=== PATIENT | male | born 1960 | race Caucasian/White ===

== ENCOUNTER 2020-01-29 09:10 | Emergency (ER) | payer BC, SELFPAY ==
--- NOTE | ~2020-01-29 | CT_ITS ---
EXAMINATION: CT abdomen pelvis wo con EXAM DATE: 01/29/2020 10:15 INDICATION: Left lower quadrant pain and hematuria. TECHNIQUE: Spiral CT of the abdomen and pelvis was performed without contrast. Axial, coronal and sag ittal images were reviewed. The dose-length product (DLP) for this examination was 457.43 mGy-cm. T he exposure was tailored according to patient size (auto mA exposure control), and iterative reconstr uction (ASIR) was used as additional dose reduction technique. Comparison is made to prior examinatio n from 02/25/2015. FINDINGS: There is punctate left nephrolithiasis. There is a 4 mm stone in the left ureterovesicular junction with mild left hydroureter and periureteral fat stranding. No caliectasis. Small to moderate bilateral fat-containing inguinal hernias. The prostate is unremarkable. The bladder is unremarkab le. The liver, spleen, adrenal glands and pancreas are unremarkable. Gallbladder is unremarkable. No biliary obstruction. There is no retroperitoneal or pelvic lymphadenopathy. There is mild scatt ered arteriosclerotic disease. Probable ileorectal anastomosis site with near total colectomy, but correlate with surgical history. The stomach and small bowel are unremarkable. There is expected amount of colonic stool. No free intraperitoneal gas. The heart is normal in size. There are no pericardial or pleural effusions. Small regions of left basilar postinfectious residua. There are no osteoblastic or osteolytic lesion s identified. IMPRESSION: 1. Left UVJ 4 mm stone, mild hydroureter. 2. Punctate left nephrolithiasis. 3. Fat-containing inguinal hernias. Reviewed, dictated and finalized at location A.
[2020-01-29 09:21] VITALS: BP 162/110; PULSE 57; RESP 18; TEMP 36.3; O2SAT 100
--- NOTE | 2020-01-29 09:29 | ED.ABDPAIN ---
HPI - Abdominal Pain General Chief Complaint: Abdominal Pain Stated Complaint: abd pain Time Seen by Provider: 01/29/20 09:29 History of Present Illness HPI narrative: LLQ pain for the past few days. Worse today. Associated with mild nausea. Some urinary hesitancy and mild dysuria. He has had kidney stones, this feels somewhat different. Related Data Allergies Allergy/AdvReac Type Severity Reaction Status Date / Time No Known Allergies Allergy Verified 01/29/20 09:19 Review of Systems Review of Systems: All systems reviewed & are unremarkable except as noted in HPI and below Constitutional: Constitutional: Denies fever(s) Cardiovascular: Cardiovascular: Denies chest pain Respiratory: Respiratory: Denies dyspnea Gastrointestinal: Gastrointestinal: Denies constipation and Denies diarrhea Musculoskeletal: Musculoskeletal: Denies back pain Neurologic: Denies weakness [facility] Family History Family History Mother Family history of cardiovascular disease Social History Social History Alcohol intake: current Gender identity (if verbalized by the patient): Male Exam Const: General: healthy appearing, no acute distress and alert Orientation/consciousness: patient oriented x3 HENMT: Head: normal to inspection Resp: Effort & Inspection: normal respiratory effort Auscultation: clear to auscultation bilaterally, no rales, no rhonchi and no wheezes Cardio: Jugular venous distension: no JVD Rate: regular rate Rhythm: regular rhythm Heart sounds: no murmurs GI: Inspection: non-distended GI Palp: Yes Soft to palpation and No Tenderness to palpation present (GI) Skin: General skin exam: normal color Neuro: General: patient oriented x3 and moves all extremities Speech: normal speech Extrem: General: no edema Psych: Appearance: well kempt Affect: normal affect Course Vital Signs Vital signs: Vital Signs Temperature 36.3 C L 01/29/20 09:21 Pulse Rate 57 L 01/29/20 09:21 Respiratory Rate 18 01/29/20 09:21 Blood Pressure 162/110 H 01/29/20 09:21 Pulse Oximetry 100 01/29/20 09:21 Temperature 36.3 C L 01/29/20 11:22 Pulse Rate 52 L 01/29/20 10:52 Respiratory Rate 18 01/29/20 10:52 Blood Pressure 148/89 H 01/29/20 10:52 Pulse Oximetry 100 01/29/20 10:52 MDM - Abdominal Pain Differential Diagnosis Differential diagnosis: Likely calculus of kidney, constipation and diverticulitis Medical Records Attestation: I reviewed the patient's medical records. Lab Data Attestation: I reviewed the patient's lab results. Result diagrams: 01/29/20 09:27 01/29/20 09:27 Labs: Lab Results 01/29/20 01/29/20 01/29/20 Range/Units 09:27 09:27 09:27 WBC 6.9 (4.5-10.0) K/mm3 RBC 5.35 (4.6-6.20) M/mm3 Hgb 12.9 L (14.0-18.0) g/dL Hct 41.1 L (42.0-52.0) % MCV 76.8 L (80-100) fl MCH 24.1 L (26-34) pg MCHC 31.4 L (32-36) g/dl RDW 18.5 H (11.5-14.5) % Plt Count 211 (150-375) k/mm3 MPV 9.0 (7.4-10.4) fl Immature Gran % (Auto) 0.1 (0-0.5) % Neut % (Auto) 75.3 H (45.5-73.1) % Lymph % (Auto) 15.3 L (18.3-44.2) % [place] % (Auto) 7.1 (2.6-8.5) % Eos % (Auto) 1.9 (0-4.4) % Baso % (Auto) 0.3 (0.2-1.2) % Lymph # (Auto) 1.05 (0.9-3.2) K/mm3 [place] # (Auto) 0.5 (0.1-0.6) K/mm3 Eos # (Auto) 0.1 (0-0.3) K/mm3 Baso # (Auto) 0.0 (0.0-0.1) K/mm3 Abs Immat Gran (auto) 0.01 (0.00-0.031) K/mm3 Absolute Neuts (auto) 5.2 (1.3-6.7) K/mm3 Absolute Nucleated RBC 0.0 (0.0-0.012) K/mm3 Nucleated RBC % 0.0 (0.0-0.2) % Sodium 135 L (137-145) mmol/L Potassium 4.0 (3.4-5.0) mmol/L Chloride 103 (98-107) mmol/L Carbon Dioxide 24 (22-30) mmol/L Anion Gap 12.0 (7-16) mmol/L BUN 15 (9-20) mg/dL Creatinine 1.20 (0.7-1.3) mg/dL Junie
[2020-01-29 09:34] LABS: Basophils Percent Auto 0.3 % (0.2-1.2); Eosinophils Absolute Auto 0.1 K/mm3 (0-0.3); Eosinophils Percent Auto 1.9 % (0-4.4); Hematocrit 41.1 % (42.0-52.0); Hemoglobin 12.9 g/dL (14.0-18.0); Immature Granulocyte Absolute 0.01 K/mm3 (0.00-0.031); Immature Granulocyte Percent A 0.1 % (0-0.5); Lymphocytes Absolute Auto 1.05 K/mm3 (0.9-3.2); Lymphocytes Percent Auto 15.3 % (18.3-44.2); Mean Corpuscular HGB Conc 31.4 g/dl (32-36); Mean Corpuscular Hemoglobin 24.1 pg (26-34); Mean Corpuscular Volume 76.8 fl (80-100); Monocytes Absolute Auto 0.5 K/mm3 (0.1-0.6); Monocytes Percent Auto 7.1 % (2.6-8.5); Neutrophils Absolute Auto 5.2 K/mm3 (1.3-6.7); Neutrophils Percent Auto 75.3 % (45.5-73.1); Platelet Count Result 211 k/mm3 (150-375); Red Blood Count 5.35 M/mm3 (4.6-6.20); Red Cell Distribution Width 18.5 % (11.5-14.5); White Blood Count 6.9 K/mm3 (4.5-10.0)
[2020-01-29 09:39] LABS: Add Urine Microscopic? YES; Appearance Urine Clear (Clear); Bilirubin Urine Negative (Negative); Blood Urine 3+ (Negative); Color Urine Yellow (Yellow); Glucose Urine UA Negative (Negative); Ketones Urine Negative (Negative); Leukocyte Esterase Ur Negative LEU/UL (Negative); Mucus Urine Moderate /lpf; Nitrate Urine Negative (Negative); Protein Urine 1+ mg/dL (Negative); RBC Urine >75 /hpf (0-2); Specific Grav Ur 1.026 (1.001-1.035); Squamous Epithelial Cell Urine Rare /hpf (Few); Urobilinogen Urine Negative mg/dL (<2.0)
[2020-01-29 09:48] LABS: Alanine Aminotransferase 17 U/L (4-50); Albumin Level 4.4 g/dL (3.5-5.1); Alkaline Phosphatase 73 U/L (38-126); Aspartate Amino Transferase 25 U/L (17-59); Bilirubin,Total 0.5 mg/dL (0.2-1.3); Blood Urea Nitrogen 15 mg/dL (9-20); Calcium 9.2 mg/dL (8.4-10.2); Carbon Dioxide 24 mmol/L (22-30); Chloride 103 mmol/L (98-107); Estimated CRCL calculation 57 ml/min; Estimated Glomerular Filt Rate > 60; Glucose 147 mg/dL (75-110); Lipase 59 U/L (23-300); Sodium 135 mmol/L (137-145)
[2020-01-29] MEDS: KETOROLAC 30 MG/ML VIAL (*BKC) IV PUSH (10:34)
[2020-01-29] MEDS: SODIUM CHLORIDE 0.9% IV 1,000 ML 999 ML IV CONT (10:35)
[2020-01-29] MEDS: TAMSULOSIN HCL 0.4 MG CAPSULE PO (10:35)
[2020-01-29 10:52] VITALS: BP 148/89; PULSE 52; RESP 18; O2SAT 100
[2020-01-29 11:22] VITALS: TEMP 36.3
== END 2020-01-29 11:31 | disposition home or self-care (01) ==
PROVIDERS: Emergency Provider Emergency Medicine; PCP Physician Assistant
DX: N13.2 Hydronephrosis with renal and ureteral calculous obstruction (principal); K40.90 Unilateral inguinal hernia, without obstruction or gangrene, not specified as recurrent
CPT/HCPCS: 36415; 74176; 80053; 81001; 83690; 85025; 96361; 96374; 99284; A9270; J1885; J7030

== ENCOUNTER 2023-12-15 09:34 | Outpatient (CLI) | payer BC, SELFPAY ==
[2023-12-15 10:22] LABS: Hematocrit 45.7 % (42.0-52.0); Hemoglobin 15.4 g/dL (14.0-18.0); Mean Corpuscular HGB Conc 33.7 g/dl (32-36); Mean Corpuscular Hemoglobin 30.4 pg (26-34); Mean Corpuscular Volume 90.3 fl (80-100); Mean Platelet Volume 9.2 fl (7.4-10.4); Platelet Count Result 175 k/mm3 (150-375); Red Blood Count 5.06 M/mm3 (4.6-6.20); White Blood Count 6.2 K/mm3 (4.5-10.0)
[2023-12-15 10:33] LABS: Alanine Aminotransferase 16 U/L (6-50); Albumin Level 4.6 g/dL (3.5-5.1); Alkaline Phosphatase 70 U/L (38-126); Anion Gap 6 mmol/L (4-12); Aspartate Amino Transferase 22 U/L (17-59); Bilirubin,Total 0.9 mg/dL (0.2-1.3); Blood Urea Nitrogen 16 mg/dL (9-20); CRP < 0.5 mg/dL (<1.0); Calcium 9.3 mg/dL (8.4-10.2); Carbon Dioxide 28 mmol/L (22-30); Chloride 105 mmol/L (98-107); Estimated Glomerular Filt Rate > 60; Glucose 100 mg/dL (65-110); Sodium 139 mmol/L (137-145)
[2023-12-15 11:09] LABS: Erythrocyte Sedimentation Rate 15 mm/hr (0-20)
== END 2023-12-15 09:35 | disposition home or self-care (01) ==
LOC: ANHLAB 09:37
PROVIDERS: PCP Internal Medicine; Visit Provider Nurse Practitioner
DX: K51.90 Ulcerative colitis, unspecified, without complications (principal); Z90.49 Acquired absence of other specified parts of digestive tract
CPT/HCPCS: 36415; 80053; 85027; 85652; 86140

== ENCOUNTER 2023-12-17 09:18 | Outpatient (CLI) | payer BC, SELFPAY ==
[2023-12-17 10:34] LABS: Toxigenic C. Diff NEGATIVE (NEGATIVE)
[2023-12-24 03:03] LABS: Calprotectin, Stool 112 mcg/g
== END 2023-12-17 09:19 | disposition home or self-care (01) ==
PROVIDERS: PCP Internal Medicine; Visit Provider Nurse Practitioner
DX: K51.90 Ulcerative colitis, unspecified, without complications (principal); Z90.49 Acquired absence of other specified parts of digestive tract
CPT/HCPCS: 83993; 87045; 87427; 87449; 87493

== ENCOUNTER 2024-02-04 01:19 | Day surgery (SDC) | payer BC, SELFPAY ==
[2024-02-03 08:52] VITALS: BMI 29.1
[2024-02-04 09:04] VITALS: BP 158/105; PULSE 80; RESP 18; TEMP 36.1; O2SAT 98; BMI 28.3
[2024-02-04] MEDS: LACTATED RINGERS 1,000 ML 150 ML IV CONT (09:13)
--- NOTE | 2024-02-04 09:45 | P.PNAN_ITS ---
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 Patient Data Age: 63 Gender: M Height: 1.65 m Weight: 77.1 kg Last Vital Signs Temp 97 F L 02/04/24 09:04 Pulse 80 02/04/24 09:04 Resp 18 02/04/24 09:04 BP 158/105 H 02/04/24 09:04 Pulse Ox 98 02/04/24 09:04 O2 Del Method Room Air 02/04/24 09:04 Allergies Allergy/AdvReac Type Severity Reaction Status Date / Time No Known Allergies Allergy Verified 02/04/24 09:03 Home Medications Medication Instructions Recorded Confirmed Type amlodipine 10 mg tablet 10 mg PO DAILY 12/15/23 02/04/24 History dicyclomine 10 mg capsule 10 mg PO QID PRN abdominal pain 02/02/24 02/04/24 Rx #120 caps Patient hx anesthesia problems: none Family hx anesthesia problems: none Results Review: All pre-operative results and documents have been reviewed as part of the pre- operative evaluation. [facility] Family History Family History Mother Family history of cardiovascular disease Social History Social History Smoking status: Never smoker Alcohol intake: current Substance use: never Substance use type: does not use Living arrangements: with family Gender identity (if verbalized by the patient): Male Spiritual care concerns: No Anes - Eval Final PreProcedure Day of Procedure 02/04/24 09:45 Patient weight: normal Heart: regular rate and rhythm Lungs: clear to auscultation Airway: Mallampati scale class II Neurological: alert and oriented Last oral intake: >/= 8 hours ASA classification: II Emergent: no Anesthetic plan: proceed Anesthesia type and monitoring: general GIVS and standard monitoring Results Review: All pre-operative results and documents have been reviewed as part of the pre- operative evaluation. Informed Consent: The patient's anesthetic plan and its attendant risks and benefits were discussed with the patient/family/POA. Questions were solicited and answers provided to the satisfaction of the patient/family/POA.
--- NOTE | 2024-02-04 09:51 | WPDHPUPDATE1 ---
History and Physical Update Update Date/Time: 02/04/24 09:51 History and Physical has been reviewed, including an updated exam of the patient. There are NO changes in the patient's condition. Risks, benefits, and alternatives have been discussed and questions answered. Patient agrees to proceed with procedure.
[2024-02-04 09:59] VITALS: BP 84/64; PULSE 69; RESP 17; O2SAT 96
[2024-02-04 10:05] VITALS: BP 88/55
[2024-02-04 10:09] VITALS: BP 114/79; PULSE 92; O2SAT 97
[2024-02-04 10:19] VITALS: BP 140/109; PULSE 75; O2SAT 97
== END 2024-02-04 10:34 | disposition home or self-care (01) ==
PROVIDERS: PCP Internal Medicine; Referring Provider Nurse Practitioner; Visit Provider Internal Medicine Gastroenterology
PROC: 0DJD8ZZ Inspection of Lower Intestinal Tract, Via Natural or Artificial Opening Endoscopic (ICD-10-PCS; CPT 45378; principal; 2024-02-04 10:30)
DX: K51.90 Ulcerative colitis, unspecified, without complications (principal); R19.8 Other specified symptoms and signs involving the digestive system and abdomen; K62.89 Other specified diseases of anus and rectum; Z98.890 Other specified postprocedural states; Z90.49 Acquired absence of other specified parts of digestive tract; Z82.49 Family history of ischemic heart disease and other diseases of the circulatory system
CPT/HCPCS: 45331; 88305; J2704; J7120

== ENCOUNTER 2024-04-28 09:18 | Outpatient (CLI) | payer BC, SELFPAY ==
[2024-05-03 15:03] LABS: NIL 0.04 IU/mL; Quantiferon TB Plus, 1T NEGATIVE (NEGATIVE); TB1-NIL 0.01 IU/mL; TB2-NIL 0.02 IU/mL
== END 2024-04-28 09:19 | disposition home or self-care (01) ==
LOC: ANHLAB 09:20
PROVIDERS: PCP Internal Medicine; Visit Provider Nurse Practitioner
DX: K51.90 Ulcerative colitis, unspecified, without complications (principal)
CPT/HCPCS: 36415; 86480

== ENCOUNTER 2024-11-25 10:21 | Outpatient (CLI) | payer BC, SELFPAY ==
--- OUTSIDE RECORDS SUMMARY | 2024-11-25 10:36 | XMS_ITS | Clinical Summary ---
Author Organization [facility] Address [address] [place] [address] Care Team Providers Care Professor Of Pathology Name Role Phone Masoud Correa MD Primary Care Provider + Allergies No known active allergies Medications amLODIPine (NORVASC) 10 mg tablet Take 1 tablet (10 mg total) by mouth daily 01/15/2023 Active Active Problems Problem Noted Date Diagnosed Date Hematochezia 10/04/2015 Anemia 09/20/2015 Shortness of breath 09/18/2015 Pre-syncope 09/18/2015 Ulcerative colitis 09/18/2015 Family History Medical History Relation Name Comments Hypertension Father Family history of hypertension - (Added by TW Conv) Heart attack Mother Family history of myocardial infarction - (Added by TW Conv) Hypertension Mother Family history of hypertension - (Added by TW Conv) Relation Name Status Comments Father Mother Social History Tobacco Use Types Packs/Day Years Used Date Smoking Tobacco: Former Tobacco Cessation:Counseling Given: Not Answered Sex and Gender Information Value Date Recorded Sex Assigned at Not on file 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 Gender Identity Not on file Sexual Orientation Not on file Obstetrics History Last Filed Vital Signs Vital Sign Reading Time Taken Comments Blood Pressure 156/98 03/12/2023 7:04 PM CDT Pulse 77 03/12/2023 7:04 PM CDT Temperature 36.8 C (98.3 F) 03/12/2023 7:04 PM CDT Respiratory Rate 16 03/12/2023 7:04 PM CDT Oxygen Saturation 95% 03/12/2023 7:04 PM CDT Inhaled Oxygen Concentration - - Weight 78.9 kg (174 lb) 03/12/2023 7:04 PM CDT Height 165.1 cm (5' 5) 03/12/2023 7:04 PM CDT Body Mass Index 28.96 03/12/2023 7:04 PM CDT Plan of Treatment Health Maintenance Due Date Last Done Comments Colon Cancer Screening-Colonoscopy 1962 Depression Screening 1962 Hepatitis C Screening 1962 Prostate Cancer Screening-PSA 1962 DTaP/Tdap/Td Vaccine (1 - Tdap) 1973 Hepatitis B Screening 1980 Regular Well Visit/Exam 18-64 1980 Zoster Vaccine (1 of 2) 2012 Influenza Vaccine (Season Ended) 2025 Pneumococcal vaccine <65 Aged Out No longer eligible based on patient's age to complete this topic Insurance [employer] O[employer] Care Teams Professor Of Pathology Relationship Specialty Start Date End Date Masoud Correa MD PCP - General 10/24/16
--- OUTSIDE RECORDS SUMMARY | 2024-11-25 10:36 | XMS_ITS | Clinical Summary ---
Author Organization [facility] Address [address] [place] [address] Phone Care Team Providers Care Diet Consultant Name Role Phone Franki Hall MD Primary Care Provider [phone] Medications mesalamine (CANASA) 1000 MG Suppository INSERT 1 SUPPOSITORY RECTALLY EVERY NIGHT AT BEDTIME 4 Active dicyclomine (BENTYL) 10 MG Capsule Take 10 mg by mouth 4 times daily as needed (abd pain). 4 Active valsartan-hydroC HLOROthiazide (DIOVAN-HCT) 80-12.5 MG Tablet Take 1 Tablet by mouth daily. 90 Tablet 1 5 Active Active Problems Problem Noted Date Diagnosed Date Essential hypertension, benign 05/31/2024 Other hyperlipidemia 03/16/2024 History of total colectomy 09/28/2023 Ulcerative pancolitis without complication 09/27 Family History Medical History Relation Name Comments No Known Problems Brother Diabetes Mother No Known Problems Sister Relation Name Status Comments Brother Alive Father Mother Sister Alive Social History Tobacco Use Types Packs/Day Years Used Date Smoking Tobacco: Former Cigarettes Passive Smoke Exposure: Past Smokeless Tobacco: Former Chew Tobacco Cessation:Counseling Given: No Alcohol Use Standard Drinks/Week Comments Yes 0 (1 standard drink = 0.6 oz pur e alcohol) Occasionally [facility] Utilities Answer Date Recorded In the past 12 months has e [place], gas, oil, or water [employer] threatened to shut off services in your home? No 03/01/2024 Social Connection and Isolat ion Panel [NHANES] Answer Date Recorded In a typical week, how many times do you talk on the phone with family, friends, or neighbors? More than three times a week 03/01/2024 How often do you get togethe r with friends or relatives? Twice a week 03/01/2024 How often do you attend chur ch or mormonism services? Never 03/01/2024 Do you belong to any clubs o r organizations such as anabaptism groups, unions, fraternal or athletic groups, or school groups? No 03/01/2024 How often do you attend meet ings of the clubs or organizations you belong to? Patient declined 03/01/2024 Are you , , di vorced, , never , or living with a partner? 03/01/2024 AUDIT-C Answer Date Recorded Q1: How often do you have a drink containing alc ohol? 2-3 times a week 03/01/2024 Q2: How many drinks containi ng alcohol do you have on a typical day when you are drinking? 1 or 2 03/01/2024 Q3: How often do you have si x or more drinks on one occasion? Never 03/01/2024 Overall Financial Resource Strain (CARDIA) Answe r Date Recorded How hard is it for you to pa y for the very basics like food, housing, medical care, and heating? Not very hard 03/01/2024 PHQ-2 Answer Date Recorded Total Score - Questions 1-9 0 04/0 06/2023 [facility] - Occupational Stress Questionnaire Answer Date Recorded Do you feel stress - tense, restless, nervous, or anxious, or unable to sleep at night because your mind is troubled all the time - these days? Not at all 03/01/2024 Exercise Vital Sign Answer Date Recorde d On average, how many days pe r week do you engage in moderate to strenuous exercise (like a brisk walk)? 7 days Minutes of Exercise per Session Not on file 03/01/2024 Hunger Vital Sign Answer Date Recorded Within the past 12 months, y ou worried that your food would run out before you got the money to buy more. Never true 03/01/20 24 Within the past 12 months, t he food you bought just didn't last and you didn't have money to get more. Never true 03/01/2024 PRAPARE - Transportation Answer Date Re corded In the past 12 months, has l ack of transportation kept you from medical appointments or from getting medications? No 03/01/2024 Lack of Transportation (Non-Medical) Not on file 03/01/2024 Housing Stability Vital Sign Answer Nasir e Recorded In the last 12 months, was t here a time when you were not able to pay the mortgage or rent on time? No 09/28/2023 Number of Places Lived in the Last Year Not on f ile 09/28/2023 In the last 12 months, was t here a time when you did not have a steady place to sleep or slept in a half-way (including now)? No 09/28/2023 Housing Stability Vital Sign Answer Nasir e Recorded In the last 12 months, was t here a time when you were not able to pay the mortgage or rent on time? No 03/01/2024 Number of Times Moved in the Last Year Not on fi le 03/01/2024 At any time in the past 12 m [facility], were you homeless or living in a half-way (including now)? 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 MANAGER Pulse 70 05/31/2024 8:53 AM EXTERNAL RELATIONS MANAGER Temperature 36.6 C (97.9 F) 05/31/2024 8:53 AM EXTERNAL RELATIONS MANAGER Respiratory Rate 12 03/01/2024 9:06 AM CDT Oxygen Saturation 94% 05/31/2024 8:53 AM EXTERNAL RELATIONS MANAGER Inhaled Oxygen Concentration - - Weight 79.4 kg (175 lb) 05/31/2024 8:53 AM EXTERNAL RELATIONS MANAGER Height 165.1 cm (5' 5) 05/31/2024 8:53 AM EXTERNAL RELATIONS MANAGER Body Mass Index 29.12 05/31/2024 8:53 AM EXTERNAL RELATIONS MANAGER Plan of Treatment Upcoming Encounters Date Type Department Care Team (Late st Contact Info) Description 11/29/2024 8:15 AM CDT Office Visit [facility] - Internal Medicine - [place] [address] [place] [address] Franki Hall MD [address] [place] [address] Health Maintenance Due Date Last Done Comments Hepatitis C Virus (HCV) Screening 1962 TdaP Immunization 1962 Cologuard 2012 Immunochemical Fecal Occult Blood 2012 Pneumococcal Immunization (5 0+ years) (1 of 1 - PCV) 2012 Zoster Immunization (1 of 2) 2012 Influenza Immunization (#1) 2024 SARS-COV-2 Immunization ( - season) 2024 Colonoscopy 12/17/2033 12/18/2023 Colorectal Cancer Screening 12/17/2033 Respiratory Syncytial Virus (RSV) Immunization (Adult) (1 - 1-dose 75+ series) 2037 PSA Discussion Completed 03/10/2024, 11/28/2021 Hepatitis B Immunization Aged Out No longer eligible based on patient's age to complete this topic Meningococcal Immunization (ACWY) Aged Out No longer eligible b ased on patient's age to complete this topic Rotavirus Immunization Aged Out No lo nger eligible based on patient's age to complete this topic Procedures Procedure Name Priority Date/Time Associated Diagnosis Comments PSA SCREEN Routine 03/10/2024 Screening for prostate cancer from Last 3 Months or Most Recently Relevant to Health Maintenance Results * PSA SCREEN (03/10/2024) Blood 03/10/2024 us Franki Hall MD CHEMISTRY ORDERABLES Final Result from Last 3 Months or Most Recently Relevant to Health Maintenance Insurance [facility] Care Teams Diet Consultant Relationship Specialty Start Date End Date Franki Hall MD [address] [place] [address] PCP - General Internal Medicine 11/22/21
--- OUTSIDE RECORDS SUMMARY | 2024-11-25 10:36 | XMS_ITS | Encounter Summary ---
Author Organization [facility] Address [address] [place] [address] Phone Care Team Providers Care Manager Transfusion Name Role Phone Franki Hall MD Primary Care Provider [phone] Reason for Visit * Reason Comments Medication Refill Encounter Details Date Type Department Care Team (Late Contact Info) Description 01/15/2023 Refill [facility] Internal Medicine [facility] [address] [place] [address] Franki Hall MD [address] [place] [address] Medication Refill Social History Tobacco Use Types Packs/Day Years Used Date Smoking Tobacco: Former Cigarettes Smokeless Tobacco: Former Chew Alcohol Use Standard Drinks/Week Comments Yes 0 (1 standard drink = 0.6 oz pur e alcohol) Occasionally PHQ-2 Answer Date Recorded Total Score - Questions 1-9 0 11/27 Sexually Active Control Partners Comments Yes Sex and Gender Information Value Date Recorded Sex Assigned at Not on file Legal Sex Male 8:38 PM CDT Gender Identity Not on file Sexual Orientation Not on file documented as of this encounter Plan of Treatment Upcoming Encounters Date Type Department Care Team (Late Contact Info) Description 11/29/2024 8:15 AM CDT Office Visit [facility] Internal Medicine [facility] [address] [place] [address] Franki Hall MD [address] [place] [address] documented as of this encounter Visit Diagnoses Not on filedocumented in this encounter Care Teams Manager Transfusion Relationship Specialty Start Date End Date Franki Hall MD [address] [place] [address] PCP - General Internal Medicine 11/22/21 documented as of this encounter
--- OUTSIDE RECORDS SUMMARY | 2024-11-25 10:36 | XMS_ITS | Encounter Summary ---
Author Organization [facility] Address [address] [place] [address] Phone Care Team Providers Care Case Preparer And Liner Name Role Phone Franki Hall MD Primary Care Provider [phone] Reason for Visit * Reason Comments Medication Refill Encounter Details Date Type Department Care Team (Late st Contact Info) Description 04/11/2023 Refill [facility] - [facility] - [facility] [place] [address] [facility] [place] [address] Franki Hall MD [address] [facility] [place] [address] Medication Refill Social History Tobacco Use [...] on file documented as of this encounter Miscellaneous Notes * Telephone Encounter - Margaret Franz RN - 04/13/2023 8:53 AM CDT LAST OV 12/10/21 Medication failed the protocol, provider to review and approve the medication order if appropriate. Requested Prescriptions Pending Prescriptions Disp Refills amLODIPine (NORVASC) 10 MG Tablet [Pharmacy Med Name: AMLODIPINE BESYLATE 10 MG TAB] 90 Tablet 1 Sig: TAKE 1 TABLET BY MOUTH EVERY DAY Calcium-Channel Blockers Protocol Failed - 04/11/2023 1:11 AM Failed - BP on record in the past year Clinician-entered: BP Readings from Last 3 Encounters: 12/10/21 (!) 144/96 11/27/21 (!) 156/96 Patient-entered: No data recorded Failed - Visit with relevant provider in past 12 months or upcoming 90 days Recent Visits No visits were found meeting these conditions. Showing recent visits within past 365 days and meeting all other requirements Future Appointments No visits were found meeting these conditions. Showing future appointments within next 90 days and meeting all other requirements documented in this encounter Plan of Treatment Upcoming Encounters Date Type Department Care Team (Late st Contact Info) Description 11/29/2024 8:15 AM CDT Office Visit [facility] - Internal Medicine [place] [address] [place] [address] Franki Hall MD [address] [place] [address] documented as of this encounter Visit Diagnoses Not on filedocumented in this encounter Care Teams Case Preparer And Liner Relationship Specialty Start Date End Date Franki Hall MD [address] [place] [address] PCP - General Internal Medicine 11/22/21 documented as of this encounter
--- OUTSIDE RECORDS SUMMARY | 2024-11-25 10:36 | XMS_ITS | Encounter Summary ---
Author Organization [facility] Address [address] [place] [address] Phone Care Team Providers Care Crane Follower Name Role Phone Franki Hall MD Primary Care Provider [phone] Reason for Visit * Reason Comments Medication Refill Encounter Details Date Type Department Care Team (Late st Contact Info) Description 10/21/2023 Refill [facility] - Internal Medicine - [place] [address] [place] [address] Gisel Flower, [facility] [address] [place] [address] Medication Refill Social History Tobacco Use Types Packs/Day Years Used Date Smoking Tobacco: Former Cigarettes Passive Smoke Exposure: Past Smokeless Tobacco: Former Chew Alcohol Use Standard Drinks/Week Comments Yes 0 (1 standard drink = 0.6 oz pur e alcohol) Occasionally [facility] Utilities Answer Date Recorded In the past 12 months has [employer], gas, oil, or water [employer] threatened to shut off services in your home? No 09/28/2023 Social Connection and Isolation Panel [NHANES] A nswer Date Recorded In a typical week, how many times do you talk on the phone with family, friends, or neighbors? Three times a week 09/28/2023 How often do you get togethe r with friends or relatives? Once a week 09/28/2023 How often do you attend chur ch or yazdanism services? Never 09/28/2023 Do you belong to any clubs o r organizations such as confucianist groups, unions, fraternal or athletic groups, or school groups? No 09/28/2023 How often do you attend meet ings of the clubs or organizations you belong to? Never 09/28/2023 Are you , , di vorced, , never , or living with a partner? 09/28/2023 AUDIT-C Answer Date Recorded Q1: How often do you have a drink containing alc ohol? 2-3 times a week 09/28/2023 Q2: How many drinks containi ng alcohol do you have on a typical day when you are drinking? 1 or 2 09/28/2023 Q3: How often do you have si x or more drinks on one occasion? Never 09/28/2023 Overall Financial Resource Strain (CARDIA) Answe r Date Recorded How hard is it for you to pa y for the very basics like food, housing, medical care, and heating? Not very hard 09/28/2023 PHQ-2 Answer Date Recorded Total Score - Questions 1-9 0 06/2023 [facility] - Occupational Stress Questionnaire Answer Date Recorded Do you feel stress - tense, restless, nervous, or anxious, or unable to sleep at night because your mind is troubled all the time - these days? Only a little 09/28/2023 Exercise Vital Sign Answer Date Recorde d On average, how many days pe r week do you engage in moderate to strenuous exercise (like a brisk walk)? 4 days Minutes of Exercise per Session Not on file 09/28/2023 Hunger Vital Sign Answer Date Recorded Within the past 12 months, y ou worried that your food would run out before you got the money to buy more. Never true 09/28/19 24 Within the past 12 months, t he food you bought just didn't last and you didn't have money to get more. Never true 09/28/2023 PRAPARE - Transportation Answer Date Re corded In the past 12 months, has l ack of transportation kept you from medical appointments or from getting medications? No 06/2023 In the past 12 months, has l ack of transportation kept you from meetings, work, or from getting things needed for daily living? No 09/28/2023 Housing Stability Vital Sign Answer [...] place to sleep or slept in a correction (including now)? No 09/28/2023 Sexually Active Control Partners Comments Yes Sex and Gender Information Value Date Recorded Sex Assigned at Not on file Legal Sex Male 8:38 PM CDT Gender Identity Not on file Sexual Orientation Not on file documented as of this encounter Miscellaneous Notes * Telephone Encounter - Margaret Franz RN - 10/21/2023 9:50 AM CDT Medication(s) [facility] Medication Refill Standing Order for Pediatricand Adult Patients. Requested Prescriptions Pending Prescriptions Disp Refills amLODIPine (NORVASC) 10 MG Tablet [Pharmacy Med Name: AMLODIPINE BESYLATE 10 MG TAB] 90 Tablet 1 Sig: TAKE 1 TABLET BY MOUTH EVERY DAY Calcium-Channel Blockers Protocol Passed - 10/21/2023 12:44 AM Passed - BP on record in the past year Clinician-entered: BP Readings from Last 3 Encounters: 09/28/23 112/64 12/10/21 (!) 144/96 11/27/21 (!) 156/96 Patient-entered: No data recorded Passed - Visit with relevant provider in past 12 months or upcoming 90 days Recent Visits Date Type Provider Dept 09/28/23 Office Visit Franki Hall MD [facility] [address] Showing recent visits within past 365 days and meeting all other requirements Future Appointments No visits were found meeting these conditions. Showing future appointments within next 90 days and meeting all other requirements documented in this encounter Plan of Treatment Upcoming Encounters Date Type Department Care Team (Late st Contact Info) Description 11/29/2024 8:15 AM CDT Office Visit [facility] - Internal Medicine - [place] [address] [place] [address] Franki Hall MD [address] [place] [address] documented as of this encounter Visit Diagnoses Not on filedocumented in this encounter Additional Health Concerns Assessment Noted Time PHQ-9 Depression Total Score: 0 09/28/19 24 1:53 PM CDT documented as of this encounter Care Teams Crane Follower Relationship Specialty Start Date End Date Franki Hall MD [address] [place] [address] PCP - General Internal Medicine 11/22/21 documented as of this encounter
--- OUTSIDE RECORDS SUMMARY | 2024-11-25 10:36 | XMS_ITS | Referral Summary ---
Author Organization [facility] Address [address] [place] [address] Care Team Providers Care Vaccine Customer Representative Name Role Phone Masoud Correa MD Primary Care Provider + Allergies No known active allergies Medications amLODIPine (NORVASC) 10 mg tablet Take 1 tablet (10 mg total) by mouth daily 01/15/2023 Active Active Problems Problem Noted Date Diagnosed Date Hematochezia 10/04/2015 Anemia 09/20/2015 Shortness of breath 09/18/2015 Pre-syncope 09/18/2015 Ulcerative colitis 09/18/2015 Social History Tobacco Use Types Packs/Day Years Used Date Smoking Tobacco: Former Tobacco Cessation:Counseling Given: Not Answered Sex and Gender Information Value Date Recorded Sex Assigned at Not on file 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 Care Teams Vaccine Customer Representative Relationship Specialty Start Date End Date Masoud Correa MD PCP - General 10/24/16
[2024-11-25 11:35] LABS: Hematocrit 47.9 % (42.0-52.0); Hemoglobin 16.2 g/dL (14.0-18.0); Mean Corpuscular HGB Conc 33.8 g/dl (32-36); Mean Corpuscular Hemoglobin 31.3 pg (26-34); Mean Corpuscular Volume 92.5 fl (80-100); Mean Platelet Volume 9.6 fl (7.4-10.4); Platelet Count Result 170 k/mm3 (150-375); Red Blood Count 5.18 M/mm3 (4.6-6.20); White Blood Count 5.6 K/mm3 (4.5-10.0)
[2024-11-25 11:40] LABS: Iron 124 ug/dL (49-181)
[2024-11-25 11:44] LABS: Alanine Aminotransferase 36 U/L (6-50); Albumin Level 4.4 g/dL (3.5-5.1); Alkaline Phosphatase 64 U/L (38-126); Anion Gap 8 mmol/L (4-12); Aspartate Amino Transferase 32 U/L (17-59); Bilirubin,Total 0.8 mg/dL (0.2-1.3); Blood Urea Nitrogen 12 mg/dL (9-20); CRP < 0.5 mg/dL (<1.0); Calcium 9.8 mg/dL (8.4-10.2); Carbon Dioxide 30 mmol/L (22-30); Chloride 102 mmol/L (98-107); Estimated Glomerular Filt Rate > 60; Glucose 90 mg/dL (65-110); Potassium 3.8 mmol/L (3.4-5.0); Sodium 140 mmol/L (137-145)
[2024-11-25 11:49] LABS: Percent Iron Saturation 39 % (20-50)
[2024-11-25 12:19] LABS: Erythrocyte Sedimentation Rate 33 mm/hr (0-20)
[2024-11-25 12:47] LABS: Folic Acid 10.1 ng/mL (2.76->20)
[2024-11-30 10:24] LABS: Vitamin D 1,25 (OH)2 Total 52 pg/mL (18-72); Vitamin D2 1,25 (OH)2 <8 pg/mL; Vitamin D3 1,25 (OH)2 52 pg/mL
== END 2024-11-25 10:22 | disposition home or self-care (01) ==
LOC: ANHLAB 10:22
PROVIDERS: PCP Internal Medicine; Visit Provider Nurse Practitioner
DX: K51.90 Ulcerative colitis, unspecified, without complications (principal); R19.8 Other specified symptoms and signs involving the digestive system and abdomen; Z90.49 Acquired absence of other specified parts of digestive tract
CPT/HCPCS: 36415; 80053; 82607; 82652; 82728; 82746; 83540; 83550; 84443; 85027; 85652; 86140

== ENCOUNTER 2025-03-17 05:15 | Day surgery (SDC) | payer BC, SELFPAY ==
[2025-03-13 13:47] VITALS: BMI 29.3
--- OUTSIDE RECORDS SUMMARY | 2025-03-17 05:17 | XMS_ITS | Encounter Summary ---
Author Organization [facility] Address [address] [place] [address] Phone Care Team Providers Care Ticket Machine Operator Name Role Phone Franki Hall MD Primary Care Provider [phone] Jamie Anaya MD Unavailable [phone] Reason for Visit * Reason Comments Medication Refill Encounter Details Date Type Department Care Team (Late st Contact Info) Description 01/15/2023 Refill [facility] - [place] [address] [place] [address] Franki Hall MD [address] [place] [address] Medication Refill Social History Tobacco Use Types [...] Department Care Team (Late Contact Info) Description 03/17/2025 7:30 PM CDT Hospital Encounter [facility] [address] [place] [id number] Jamie Anaya MD [address] [facility] [address] [address] 03/22/2025 8:30 AM CDT Office Visit [facility] Group - Ear, Nose & Throat - [place] [address] [place] [phone] Jamie Anaya MD [address] [facility] [address] [place] [address] 06/01/2025 8:20 AM BOAT OAR MAKER Office Visit [facility] - Primary Care - [place] [address] [place] [phone] Franki Hall MD [address] [place], [place] [id number] documented as of this encounter Visit Diagnoses Not on filedocumented in this encounter Care Teams Ticket Machine Operator Relationship Specialty Start Date End Date Franki Hall MD PCP - General Internal Medicine 11/22/21 Jamie Anaya MD [address] [facility] [address] [address] Consulting Physician Otolaryngology 02/07/25 documented as of this encounter
--- OUTSIDE RECORDS SUMMARY | 2025-03-17 05:17 | XMS_ITS | Clinical Summary ---
Author Organization [facility] Address [address] [place] [address] Phone Care Team Providers Care Heavy Equipment Mechanic Name Role Phone Franki Hall MD Primary Care Provider [phone] Jamie Anaya MD Unavailable [phone] Allergies No known active allergies Medications mesalamine (CANASA) 1000 MG Suppository INSERT 1 SUPPOSITORY RECTALLY EVERY NIGHT AT BEDTIME 4 Active dicyclomine (BENTYL) 10 MG Capsule Take 10 mg by mouth 4 times daily as needed (abd pain). 4 Active valsartan-hydro CHLOROthiazide (DIOVAN-HCT) 80-12.5 MG Tablet Take 1 Tablet by mouth daily. 90 Tablet 1 5 Active Velsipity 2 MG Tablet 5 Active fluticasone (FLONASE) 50 MCG/ACT SuspensionIndic ations:Laryngop haryngeal reflux disease,Chronic sinusitis, unspecified location,Deviat ed nasal septum,Hypertro phy of both inferior nasal turbinates,Abdullahi rgic rhinitis, unspecified seasonality, unspecified trigger,Posteri or rhinorrhea 2 Sprays by Nasal route daily for 30 days. Use in each nostril as directed. 9.9 mL 2 5 03/17/20 25 Active omeprazole (PriLOSEC) 40 MG CAPSULE DELAYED RELEASEIndicati ons:Laryngophar yngeal reflux disease Take 1 Capsule by mouth daily for 90 days. Take 30 minutes before breakfast. 90 Capsule 5 03/14/20 25 doxycycline hyclate (VIBRAMYCIN) 100 MG CapsuleIndicati ons:Laryngophar yngeal reflux disease,Chronic sinusitis, unspecified location,Deviat ed nasal septum,Hypertro phy of both inferior nasal turbinates,Abdullahi rgic rhinitis, unspecified seasonality, unspecified trigger,Posteri or rhinorrhea Take 2 Capsules by mouth daily for 1 day, THEN 1 Capsule daily for 20 days. 22 Capsule 5 03/08/20 25 Active Problems Problem Noted Date Diagnosed Date Essential hypertension, benign 05/31/2024 Other hyperlipidemia 03/16/2024 History of total colectomy 09/28/2023 Ulcerative pancolitis without complication 09/27 Encounters Date Type Department Care Team Description 03/17/2025 7:30 PM CDT [facility] [address] [place] [address] Jamie Anaya MD 02/15/2025 8:00 AM CDT Office Visit [facility] [address] [place] [address] Jamie Anaya MD Laryngopharyngeal reflux disease (Primary Dx); Chronic sinusitis, unspecified location; Deviated nasal septum; Hypertrophy of both inferior nasal turbinates; Allergic rhinitis, unspecified seasonality, unspecified trigger; Posterior rhinorrhea Discharge Disposition: Discharged to home or Selfcare 02/15/2025 Travel 12/20/2024 Results Follow-Up [facility] [address] [place] [address] Jamie Anaya MD XR ESOPHAGRAM 12/19/2024 8:16 AM CDT - 12/19/2024 11:59 PM CDT [facility] Radiology [address] [place] [address] Jamie Anaya MD Discharge Disposition: Discharged to home or Selfcare 12/19/2024 Travel from Last 3 Months Family History Medical History Relation Name Comments [...] = 0.6 oz pur e alcohol) Occasionally [facility] Utilities Answer Date Recorded In the past 12 months has e electric, gas, oil, or water company threatened to shut off services in your home? No 03/01/2024 Social Connection and Isolation Panel Answer Date Recorded In a typical week, how many times do you talk on the phone with family, friends, or neighbors? More than three times a week 03/01/2024 How often do you get togethe r with friends or relatives? Twice a week 03/01/2024 How often do you attend chur ch or methodist services? Never 03/01/2024 Do you belong to any clubs o r organizations such as scientologist groups, unions, fraternal or athletic groups, or [...] Recorded Total Score - Questions 1-9 0 08/2024 [facility] [place] [facility] - Occupational Stress [...] file 03/01/2024 Housing Stability Vital Sign Answer Ansir e Recorded In the last 12 months, [...] place to sleep or slept in a senior care (including now)? No 09/28/2023 Housing Stability Vital Sign Answer Nasir e Recorded In the last 12 months, was t here a time when you were not able to pay the mortgage or rent on time? No 03/01/2024 Number of Times Moved in the Last Year Not on fi le 03/01/2024 At any time in the past 12 m [facility], were you homeless or living in a senior care (including now)? No 03/01/2024 Sexually Active Control Partners Comments Yes Sex and Gender Information Value Date Recorded Sex Assigned at Not on file Legal Sex Male 8:38 PM CDT Gender Identity Not on file Sexual Orientation Not on file Last Filed Vital Signs Vital Sign Reading Time Taken Comments Blood Pressure 124/84 02/15/2025 8:02 AM CDT Pulse 90 02/15/2025 8:02 AM CDT Temperature 36.4 C (97.6 F) 02/15/2025 8:02 AM CDT Respiratory Rate 18 02/15/2025 8:02 AM CDT Oxygen Saturation 97% 02/15/2025 8:02 AM CDT Inhaled Oxygen Concentration - - Weight 80.3 kg (177 lb) 02/15/2025 8:02 AM CDT Height 165.1 cm (5' 5) 02/15/2025 8:02 AM CDT Body Mass Index 29.45 02/15/2025 8:02 AM CDT Plan of Treatment Upcoming Encounters Date Type Department Care Team (Late st Contact Info) Description 03/17/2025 7:30 PM CDT [facility] [place] [address] Jamie Anaya MD #[address] [address] 03/22/2025 8:30 AM CDT [facility] - [place] #2 [facility] [place] [address] Jamie Anaya MD #[address] [address] 06/01/2025 8:20 AM PYRIDINE RECOVERY OPERATOR [facility] [place] [address] [place] [address] Franki Hall MD [address] [place] [address] Health Maintenance Due Date Last Done Comments Hepatitis C Virus (HCV) Screening 1960 TdaP Immunization 1962 Cologuard 2007 Immunochemical Fecal Occult Blood 2007 Pneumococcal Immunization (5 0+ years) (1 of 1 - PCV) 2012 Zoster Immunization (1 of 2) 2012 Influenza Immunization (#1) 2025 SARS-COV-2 Immunization (1 - season) 2025 Colonoscopy 12/17/2033 12/18/2023 Colorectal Cancer Screening 12/17/2033 Respiratory Syncytial Virus (RSV) Immunization (Adult) (1 - 1-dose 75+ series) 2037 PSA Discussion Completed 03/10/2024, 11/28/2021 Hepatitis B Immunization Aged Out No longer eligible based on patient's age to complete this topic Human Papillomavirus (HPV) Immunization Aged Out No longer eligible b ased on patient's age to complete this topic Meningococcal Immunization (ACWY) Aged Out No longer eligible b ased on patient's age to complete this topic Rotavirus Immunization Aged Out No lo nger eligible based on patient's age to complete this topic Procedures Procedure Name Priority Date/Time Associated Diagnosis Comments LARYNGOSCOPY FLEX DIAGNOSTIC Today 02/15/2025 8:00 AM CDT Laryngopharyngeal reflux disease Chronic sinusitis, unspecified location Deviated nasal septum Hypertrophy of both inferior nasal turbinates Allergic rhinitis, unspecified seasonality, unspecified trigger Posterior rhinorrhea XR ESOPHAGRAM Routine 12/19/2024 8:53 AM CDT Esophageal dysphagia PSA SCREEN Routine 03/10/2024 Screening for prostate cancer from Last 3 Months or Most Recently Relevant to Health Maintenance Results * LARYNGOSCOPY FLEX DIAGNOSTIC (02/15/2025 8:00 AM CDT) Narrative Jamie Anaya MD - 02/15/2025 8:00 AM CDT Jamie Anaya MD 02/15/2025 8:45 AM FIBEROPTIC NASOLARYNGOSCOPY Anesthesia: Lidocaine and oxymetasoline Findings: The flexible fiberoptic laryngoscope was passed through the nasal cavity and advanced to examine the nasopharynx, oropharynx, hypopharynx and larynx. The nasopharynx was without masses, lesions or mucosal irregularities. The pharyngeal jurado were symmetric without masses, lesions or mucosal irregularities. The vallecula and base of tongue was symmetric without masses, lesions or mucosal irregularities. The epiglottis and aryepiglottic folds were without masses, lesions or mucosal irregularities. The pyriform sinuses were symmetric without pooled secretions or suspicious lesions. The arytenoids and inter-arytenoid area was without erythema or edema. The glottis showed the false and true vocal folds to be without lesion. True vocal cords had normal mobility with abduction and and midline approximation with adduction. Other abnormal findings: Left side deviated nasal septum hypertrophy of nasal turbinates dry nasal mucosa, no more pooling of secretions compared to the previous visit before surgery EBL none No complications were noted. Jamie Anaya MD PROCEDURE/MINOR SURGICAL ORDERA BLES Final Result * XR ESOPHAGRAM (12/19/2024 8:53 AM CDT) Anatomical Region Laterality Modality GI, Abdomen N/A Digital Radiogra phy 12/19/2024 10:0 0 AM CDT Impressions 12/19/2024 10:02 AM CDT IMPRESSION: 1. Outpouching near the pharyngeal esophageal junction posteriorly likely representing a Zenker's diverticulum. Recommend correlation with endoscopy. 2. Suspected area of narrowing just distal to this diverticulum. Recommend correlation with endoscopy. 3. Small hiatal hernia and gastroesophageal reflux. 4. Tertiary contractions of the esophagus. Narrative 12/19/2024 10:02 AM CDT EXAM DESCRIPTION: XR ESOPHAGRAM REASON FOR STUDY: difficulty swallowing solid foods, pills x 10-15 years. pt states only mild difficulty with soft foods, no difficulty with liquids. Pt states he noticed lump on anterior neck x 5 months ago. Hx of HTN RADIATION DOSE: Dose: The utilized fluoroscopic equipment does not provide radiation exposure indices. The exposure time is 1.5 minutes and the number of fluorographic images are 87 TECHNIQUE: Under fluoroscopic guidance, patient ingested effervescent granules followed by thick and thin barium. COMPARISON: None FINDINGS: 12.5 mm Barium Tablet: No significant delay in passage. ESOPHAGEAL MOTILITY: Tertiary contractions are noted. No esophageal spasm. ESOPHAGEAL MUCOSA: In the upper posterior esophagus/distal pharynx near the pharyngeal esophageal junction there is an outpouching. There also appears to be a questionable area of narrowing of the upper esophagus just distal to this suspected diverticulum. GASTRO-ESOPHAGEAL JUNCTION: There is a tiny hiatal hernia. There is also gastroesophageal reflux. NON-GI TRACT STRUCTURES: No significant finding. OTHER: No other significant finding. THIS IS AN ELECTRONICALLY VERIFIED FINAL REPORT 12/19/2024 10:00 AM - Electronically signed by Maximo Boss M.D. AM: AM Report ID: [id number] Reading Location: [id number] Procedure Note Maximo Boss MD - 12/19/2024 EXAM DESCRIPTION: XR ESOPHAGRAM REASON FOR STUDY: difficulty swallowing solid foods, pills x 10-15 years. pt states only mild difficulty with soft foods, no difficulty with liquids. Pt states he noticed lump on anterior neck x 5 months ago. Hx of HTN RADIATION DOSE: Dose: The utilized fluoroscopic equipment does not provide radiation exposure indices. The exposure time is 1.5 minutes and the number of fluorographic images are 87 TECHNIQUE: Under fluoroscopic guidance, patient ingested effervescent granules followed by thick and thin barium. COMPARISON: None FINDINGS: 12.5 mm Barium Tablet: No significant delay in passage. ESOPHAGEAL MOTILITY: Tertiary contractions are noted. No esophageal spasm. ESOPHAGEAL MUCOSA: In the upper posterior esophagus/distal pharynx near the pharyngeal esophageal junction there is an outpouching. There also appears to be a questionable area of narrowing of the upper esophagus just distal to this suspected diverticulum. GASTRO-ESOPHAGEAL JUNCTION: There is a tiny hiatal hernia. There is also gastroesophageal reflux. NON-GI TRACT STRUCTURES: No significant finding. OTHER: No other significant finding. THIS IS AN ELECTRONICALLY VERIFIED FINAL REPORT 12/19/2024 10:00 AM - Electronically signed by Maximo Boss M.D. AM: AM Report ID: [id number] Reading Location: [id number] IMPRESSION: 1. Outpouching near the pharyngeal esophageal junction posteriorly likely representing a Zenker's diverticulum. Recommend correlation with endoscopy. 2. Suspected area of narrowing just distal to this diverticulum. Recommend correlation with endoscopy. 3. Small hiatal hernia and gastroesophageal reflux. 4. Tertiary contractions of the esophagus. Jamie Anaya MD IMG FLUOROSCOPY ORDERABLES Evangelina l Result * PSA SCREEN (03/10/2024) Blood 03/10/2024 us Franki Hall MD CHEMISTRY ORDERABLES Final Result from Last 3 Months or Most Recently Relevant to Health Maintenance Insurance [facility] Care Teams Heavy Equipment Mechanic Relationship Specialty Start Date End Date Franki Hall MD PCP - General Internal Medicine 11/22/21 Jamie Anaya MD [address] [address] Consulting Physician Otolaryngology 02/07/25
--- OUTSIDE RECORDS SUMMARY | 2025-03-17 05:17 | XMS_ITS | Encounter Summary ---
Author Organization [facility] Address [address] [place] [address] Phone Care Team Providers Care Sap Director Name Role Phone Franki Hall MD Primary Care Provider [phone] Jamie Anaya MD Unavailable [phone] Reason for Visit * Reason Comments Medication Refill Encounter Details Date Type Department Care Team (Late st Contact Info) Description 04/11/2023 [facility]ill [facility] - [place] [address] [place] [address] Franki Hall MD [address] [place] [address] Medication Refill Social History Tobacco [...] Description 03/17/2025 7:30 PM CDT [facility] [address] Jamie Anaya MD #[address] [address] 03/22/2025 8:30 AM CDT Office Visit [facility] - Ear, Nose & Throat - [place] #2 [facility] [place] [address] Jamie Anaya MD #[address] [address] 06/01/2025 8:20 AM STATISTICAL DEVELOPER Office Visit [facility] Medical [facility] - Primary Care - [place] [address] [place] [phone] Franki Hall MD [address] [place] [address] documented as of this encounter Visit Diagnoses Not on filedocumented in this encounter Care Teams Sap Director Relationship Specialty Start Date End Date Franki Hall MD PCP - General Internal Medicine 11/22/21 Jamie Anaya MD #2 [facility] [address] [address] Consulting Physician Otolaryngology 02/07/25 documented as of this encounter
--- OUTSIDE RECORDS SUMMARY | 2025-03-17 05:17 | XMS_ITS | Encounter Summary ---
Author Organization [facility] Address [address] [place] [address] Phone Care Team Providers Care Industrial Manufacturing Technician Name Role Phone Franki Hall MD Primary Care Provider [phone] Jamie Anaya MD Unavailable [phone] Reason for Visit * Reason Comments Medication Refill Encounter Details Date Type Department Care Team (Late st Contact Info) Description 10/21/2023 [facility]ill [facility] - Internal Medicine - [place] [address] [facility] [place] [address] Gisel Flower, [facility] [address] [place] [address] Medication Refill Social History Tobacco Use Types Packs/Day Years Used Date Smoking Tobacco: Former Cigarettes Passive Smoke Exposure: Past Smokeless Tobacco: Former Chew Alcohol Use Standard Drinks/Week Comments Yes 0 (1 standard drink = 0.6 oz pur e alcohol) Occasionally [facility] Utilities Answer Date Recorded In the past 12 months has [employer], gas, oil, or water [employer] threatened to shut off services in your home? No 09/28/2023 Social Connection and Isolation Panel Answer Date Recorded In a typical week, how many times do you talk on the phone with family, friends, or neighbors? Three times a week 09/28/2023 How often do you get togethe r with friends or relatives? Once a week 09/28/2023 How often do you attend [facility] or [facility]aritan services? Never 09/28/2023 Do you belong to any clubs o r organizations such as methodist groups, unions, fraternal or athletic groups, or [...] Total Score - Questions 1-9 0 06/2023 [facility] - Occupational Stress Questionnaire Answer [...] place to sleep or slept in a care home (including now)? No 09/28/2023 Sexually Active Control Partners Comments Yes Sex and Gender Information Value Date Recorded Sex Assigned at Not on file Legal Sex Male 8:38 PM CDT Gender Identity Not on file Sexual Orientation Not on file documented as of this encounter Miscellaneous Notes * Telephone Encounter - Margaret Franz RN - 10/21/2023 9:50 AM CDT Medication(s) refilled and signed per [facility] Chronic Medication Refill Standing Order for [...] Dept 09/28/23 Office Visit Franki Hall MD [facility] [place] Showing recent visits within past 365 days and meeting all other requirements Future Appointments No visits were found meeting these conditions. Showing future appointments within next 90 days and meeting all other requirements documented in this encounter Plan of Treatment Upcoming Encounters Date Type Department Care Team (Late st Contact Info) Description 03/17/2025 7:30 PM CDT Hospital Encounter [facility] [address] [place] [address] Jamie Anaya MD #[address] [facility] [address] [phone] 03/22/2025 8:30 AM CDT Office Visit [facility] - Ear, Nose & Throat - [place] [address] [place] [address] Jamie Anaya MD #2 [facility] [address] [address] 06/01/2025 8:20 AM LOW PRESSURE 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 Office Visit [facility] - Primary Care - [place] [address] [place] [id number] Franki Hall MD [address] [place], [place] [id number] documented as of this encounter Visit Diagnoses Not on filedocumented in this encounter Additional Health Concerns Assessment Noted Time PHQ-9 Depression Total Score: 0 09/28/19 24 1:53 PM CDT documented as of this encounter Care Teams Industrial Manufacturing Technician Relationship Specialty Start Date End Date Franki Hall MD PCP - General Internal Medicine 11/22/21 Jamie Anaya MD #[address] [facility] [address] [address] Consulting Physician Otolaryngology 02/07/25 documented as of this encounter
--- OUTSIDE RECORDS SUMMARY | 2025-03-17 05:17 | XMS_ITS | Clinical Summary ---
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
[2025-03-17 10:23] VITALS: BP 147/111; PULSE 84; RESP 18; TEMP 36.2; O2SAT 100
[2025-03-17] MEDS: LACTATED RINGERS 1,000 ML 150 ML IV CONT (10:32)
--- NOTE | 2025-03-17 10:37 | P.PNAN_ITS ---
Anes - Initial Pre Proc Eval Procedure: Operation Date: 03/17/25 11:30 Proposed Procedures p Flexible Sigmoidoscopy - Markus Linton MD Date/Time: 03/17/25 10:37 Surgeon: Markus Linton MD Pre Op Diagnosis: Ulcerative (chronic) pancolitis without complicati Patient Data Age: 64 Gender: M Height: 1.65 m Weight: 77.1 kg Last Vital Signs Temp 36.2 C L 03/17/25 10:23 Pulse 84 03/17/25 10:23 Resp 18 03/17/25 10:23 BP 147/111 H 03/17/25 10:23 Pulse Ox 100 03/17/25 10:23 O2 Del Method Room Air 03/17/25 10:23 Allergies Allergy/AdvReac Type Severity Reaction Status Date / Time No Known Allergies Allergy Verified 03/17/25 10:22 Home Medications ?Medication ?Instructions ?Recorded ?Confirmed ?Type valsartan 80 1 tablet PO DAILY 04/25/24 0 03/17/25 History mg-hydrochlorothiazide 12.5 mg tablet etrasimod 2 mg tablet (Velsipity) 2 mg PO DAILY #90 ta bs 09/07/24 03/17/25 Rx Patient hx anesthesia problems: none Family hx anesthesia problems: none Results Review: All pre-operative results and documents have been reviewed as part of the pre- operative evaluation. [facility] Past Medical History Medical History (Updated 03/17/25 @ 10:47 by Henry Nielsen MD) HTN (hypertension) Ulcerative colitis Surgical History Surgical History (Updated 03/17/25 @ 10:48 by Henry Nielsen MD) History of colon resection Family History Family History Mother Family history of cardiovascular disease Social History Social History Smoking packs per day: 1 Smoking cigarettes per day: 20.0 Years smoked: 2 Smoking pack-years: 2.00 Smoking status: Former smoker Tobacco type: cigarettes Alcohol intake: current Drinks per week: 4 Substance use: never Substance use type: does not use Living arrangements: alone Gender identity (if verbalized by the patient): Male Spiritual care concerns: No Anes - Eval Final PreProcedure Day of Procedure 03/17/25 10:37 Patient weight: overweight Heart: regular rate and rhythm Lungs: clear to auscultation Airway: Mallampati scale class II Neurological: alert and oriented Last oral intake: >/= 8 hours ASA classification: II Emergent: no Anesthetic plan: proceed Anesthesia type and monitoring: general GIVS and standard monitoring Results Review: All pre-operative results and documents have been reviewed as part of the pre- operative evaluation. Informed Consent: The patient's anesthetic plan and its attendant risks and benefits were discussed with the patient/family/POA. Questions were solicited and answers provided to the satisfaction of the patient/family/POA.
--- NOTE | 2025-03-17 11:16 | P.HP_ITS ---
History of Present Illness History of Present Illness Consent: Risks, benefits, and alternatives have been discussed and questions answered. Patient agrees to proceed with procedure. Chief complaint: Ulcerative (chronic) pancolitis without complicati Narrative: Henry Dewitt is a 64 year old male with ulcerative colitis status post total colectomy with J pouch in 1998. Started on velsipity because evidence of pouchitis, still intermittent rectal pain, canasa supp in the past helped some Review of Systems Review of Systems: All systems reviewed & are unremarkable except as noted in HPI and below PMFSH Past Medical History Medical History (Updated 03/17/25 @ 10:47 by Henry Nielsen MD) HTN (hypertension) Ulcerative colitis Surgical History Surgical History (Updated 03/17/25 @ 10:48 by Henry Nielsen MD) History of colon resection Family History Family History Mother Family history of cardiovascular disease Social History Social History Smoking packs per day: 1 Smoking cigarettes per day: 20.0 Years smoked: 2 Smoking pack-years: 2.00 Smoking status: Former smoker Tobacco type: cigarettes Alcohol intake: current Drinks per week: 4 Substance use: never Substance use type: does not use Living arrangements: alone Gender identity (if verbalized by the patient): Male Spiritual care concerns: No Meds Home Medications and Allergies Home Medications ?Medication ?Instructions ?Recorded ?Confirmed ?Type valsartan 80 1 tablet PO DAILY 04/25/24 0 03/17/25 History mg-hydrochlorothiazide 12.5 mg tablet etrasimod 2 mg tablet (Velsipity) 2 mg PO DAILY #90 ta bs 09/07/24 03/17/25 Rx Allergies Allergy/AdvReac Type Severity Reaction Status Date / Time No Known Allergies Allergy Verified 03/17/25 10:22 Vital Signs Vital Signs - 24 hr 03/17/25 10:23 Temperature 97.1 F L Pulse Rate 84 Respiratory Rate 18 Blood Pressure 147/111 H Pulse Oximetry 100 Oxygen Delivery Room Air Exam Const: General: comfortable and no acute distress HENMT: Face/Nose/Sinus: Normal nares present Eyes: General: appearance normal, both eyes and all related structures Neck: Neck: no JVD Resp: Auscultation: clear to auscultation bilaterally Cardio: Rate: regular rate Rhythm: regular rhythm GI: Inspection: non-distended GI Palp: Yes Soft to palpation Skin: General skin exam: normal color Neuro: Speech: normal speech Extrem: General: normal to inspection Psych: Mental Status: mental status grossly normal Assessment and Plan Assessment and plan (1) Pouchitis: Code(s): K91.850 - Pouchitis Status: Acute Assessment and Plan: sigmoidoscopy (2) Status post proctocolectomy: Code(s): Z90.49 - Acquired absence of other specified parts of digestive tract Status: Acute
--- NOTE | 2025-03-17 11:25 | S_PTH ---
PATIENT: Henry Dewitt LOC: [facility] Dee#:[id number] AGE/SX: 64/M ROOM: RE03/17/[address]: Markus Linton MD : 1960 BED: DIS: 03/17/2025 SPEC #: [id number] RECD: 03/17/25 12:46 STATUS: CHAVA REQ #: [id number] DANE: 03/17/25 11:[address]: Markus Linton DEPT: [facility] Surgical RECD BY: Cici Barrios ENTERED: 03/17/25 12:46 SP TYPE: Surgical OTHR DR: Franki Hall, Tissues: A - Rectal Biopsy Procedures: Hematoxylin and Eosin Stain Gross and Microscopic Level 4
[2025-03-17 11:27] VITALS: BP 97/68; PULSE 68; RESP 16; O2SAT 96
[2025-03-17 11:37] VITALS: BP 110/78; PULSE 72; RESP 20; O2SAT 99
[2025-03-17 11:47] VITALS: BP 130/95; PULSE 70; RESP 19; O2SAT 99
--- OUTSIDE RECORDS SUMMARY | 2025-03-17 19:30 | XMS_ITS | Encounter Summary ---
Author Organization [facility] Address [address] [place] [address] Phone Care Team Providers Care Oracle Soa Developer Name Role Phone Franki Hall MD Primary Care Provider [phone] Jamie Anaya MD Unavailable [phone] Reason for Visit * Radiology Services (Routine) - Authorized Specialty Diagnoses / Procedures Referred By Contac t Referred To Contact Radiology Diagnoses Laryngopharyngeal reflux disease Chronic sinusitis, unspecified location Deviated nasal septum Hypertrophy of both inferior nasal turbinates Allergic rhinitis, unspecified seasonality, unspecified trigger Posterior rhinorrhea Procedures CT SINUSES W/O CONTRAST Jamie Anaya MD #2 [facility] [place] [address] Phone: tel: fax: Referral ID Status Reason Start Date Expiration Date V isits Requested Visits Authorized [id number] Authorized 02/15/2025 1 1 Encounter Details Date Type Department Care Team (Late st Contact Info) Description 03/17/2025 7:30 PM CDT Hospital Encounter [facility] [address] [facility] [place] [address] Jamie Anaya MD #2 [facility] [address] [address] Social History Tobacco Use Types Packs/Day Years Used Date Smoking Tobacco: Former Cigarettes Passive Smoke Exposure: Past Smokeless Tobacco: Former Chew Alcohol Use Standard Drinks/Week Comments Yes 0 (1 standard drink = 0.6 oz pur e alcohol) Occasionally [facility] Utilities Answer Date Recorded In the past 12 months has th e electric, gas, oil, or water company [...] week 03/01/2024 How often do you attend [facility] or yazidism services? Never 03/01/2024 Do you belong to any clubs o r organizations such as jehovah's witness groups, unions, fraternal or athletic groups, or [...] Recorded Total Score - Questions 1-9 0 06/0 08/2024 [facility] - Occupational [...] place to sleep or slept in a penitentiary (including now)? No 09/28/2023 Housing Stability Vital Sign Answer Nasir e Recorded In the last 12 months, was t here a time when you were not able to pay the mortgage or rent on time? No 03/01/2024 Number of Times Moved in the Last Year Not on fi le 03/01/2024 At any time in the past 12 m [facility], were you homeless or living in a penitentiary (including now)? No 03/01/2024 Sexually Active Control Partners Comments Yes Sex and Gender Information Value Date Recorded Sex Assigned at Not on file Legal Sex Male 8:38 PM CDT Gender Identity Not on file Sexual Orientation Not on file documented as of this encounter Plan of Treatment Upcoming Encounters Date Type Department Care Team (Late st Contact Info) Description 03/22/2025 8:30 AM CDT Office Visit [facility] - Ear, Nose & Throat - [place] [address] [facility] [place] [address] Jamie Anaya MD #2 [facility] [address] [address] 06/01/2025 8:20 AM 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 Office Visit [facility] - Primary Care - [place] [address] [place] [address] Franki Hall MD [address] [place] [address] Scheduled Orders Name Type Priority Associated Diagnoses Orde r Schedule CT SINUSES W/O CONTRAST Imaging Routine Laryngopharyngeal reflux disease Chronic sinusitis, unspecified location Deviated nasal septum Hypertrophy of both inferior nasal turbinates Allergic rhinitis, unspecified seasonality, unspecified trigger Posterior rhinorrhea Expected: 03/08/2025, Expires: 06/06/2025 documented as of this encounter Visit Diagnoses Not on filedocumented in this encounter Additional Health Concerns Assessment Noted Time PHQ-9 Depression Total Score: 0 11/30/19 8:17 AM CDT documented as of this encounter Care Teams Oracle Soa Developer Relationship Specialty Start Date End Date Franki Hall MD PCP - General Internal Medicine 11/22/21 Jamie Anaya MD #[address] [facility] [address] [address] Consulting Physician Otolaryngology 02/07/25 documented as of this encounter
== END 2025-03-17 12:16 | disposition home or self-care (01) ==
PROVIDERS: PCP Internal Medicine; Visit Provider Internal Medicine Gastroenterology
PROC: 0DJD8ZZ Inspection of Lower Intestinal Tract, Via Natural or Artificial Opening Endoscopic (ICD-10-PCS; CPT 45330; principal; 2025-03-17 11:30)
DX: K51.20 Ulcerative (chronic) proctitis without complications (principal); I10 Essential (primary) hypertension; Z87.19 Personal history of other diseases of the digestive system; Z90.49 Acquired absence of other specified parts of digestive tract; Z87.891 Personal history of nicotine dependence; Z82.49 Family history of ischemic heart disease and other diseases of the circulatory system
CPT/HCPCS: 45331; 88305; J2003; J2704; J7120

== ENCOUNTER 2025-05-18 14:06 | Outpatient (CLI) | payer BC, SELFPAY ==
[2025-05-18 14:52] LABS: Hematocrit 44.2 % (42.0-52.0); Hemoglobin 15.3 g/dL (14.0-18.0); Immature Granulocyte Percent A 0.7 % (0-0.5); Lymphocytes Absolute Auto 0.60 K/mm3 (0.9-3.2); Mean Corpuscular HGB Conc 34.6 g/dl (32-36); Mean Corpuscular Hemoglobin 31.7 pg (26-34); Mean Corpuscular Volume 91.5 fl (80-100); Nucleated Red Blood Cells Absolute Auto 0.000 K/mm3 (0.0-0.012); Nucleated Red Blood Cells Perc 0.0 % (0.0-0.2); Platelet Count Result 170 k/mm3 (150-375); Red Blood Count 4.83 M/mm3 (4.6-6.20); White Blood Count 6.1 K/mm3 (4.5-10.0)
[2025-05-18 14:58] LABS: Alanine Aminotransferase 61 U/L (6-50); Albumin Level 4.2 g/dL (3.5-5.1); Alkaline Phosphatase 88 U/L (38-126); Anion Gap 6 mmol/L (4-12); Aspartate Amino Transferase 39 U/L (17-59); Bilirubin,Total 0.6 mg/dL (0.2-1.3); Blood Urea Nitrogen 19 mg/dL (9-20); CRP < 0.5 mg/dL (<1.0); Calcium 9.8 mg/dL (8.4-10.2); Carbon Dioxide 29 mmol/L (22-30); Chloride 103 mmol/L (98-107); Estimated Glomerular Filt Rate > 60; Glucose 85 mg/dL (65-110); Potassium 3.8 mmol/L (3.4-5.0); Sodium 138 mmol/L (137-145); Total Protein 7.6 g/dL (6.3-8.2)
[2025-05-18 15:12] LABS: Add Urine Microscopic? NO; Appearance Urine Clear (Clear); Glucose Urine UA Negative (Negative); Leukocyte Esterase Ur Negative LEU/UL (Negative); Nitrate Urine Negative (Negative); Specific Grav Ur 1.022 (1.001-1.035)
[2025-05-18 15:44] LABS: Vitamin B12 368.0 pg/mL (239-931)
--- OUTSIDE RECORDS SUMMARY | 2025-05-18 17:19 | XMS_ITS | Clinical Summary ---
Author Organization [facility] Address [address] [facility] [place] [address] Care Team Providers Care Nnp Name Role Phone Franki Hall MD Primary Care Provider [phone] Source Comments [facility],non-owned Affiliates and Associated Physician Practices is amultiple site organization consisting of ambulatory clinics and hospital sitesin [place], [place], [place] and [place]. This disclosure is being madepursuant to the Care Everywhere program and may not contain all information available regarding this patient. Last updated 18.KDS Allergies No known active allergies Medications * Be aware that medications may not be up to date on this document. Alwaysverify current medications with the patient. valsartan-hydr oCHLOROthiazid e (Diovan HCT) 80-12.5 MG tablet Take 1 (one) tablet by mouth once daily 5 Active Velsipity 2 MG TABS Take 2 mg by mouth once daily 5 Active omeprazole (PriLOSEC) 40 MG capsule Take 1 (one) capsule by mouth daily before breakfast for 60 days 30 capsule 1 5 Active Additional Information Patient not taking.Reported on 05/15/2025 acetaminophen (Tylenol) 500 MG tablet Take 2 (two) tablets by mouth every 6 hours as needed for Fever or Pain Maximum allowable Acetaminophen amount = 4 Grams (4000 mg) / 24 hours. 60 tablet 5 Active ibuprofen (Motrin) 600 MG tablet Take 1 (one) tablet by mouth every 6 hours as needed for Pain 30 tablet 5 Active fluticasone propionate (Flonase) 50 MCG/ACT nasal spray [place] 2 (two) sprays into the nose once daily Active Active Problems No known active problems Encounters Date Type Department Care Team Description 05/15/2025 8:45 AM FURNACE CHECKER Office [facility] - Otolaryngology [address] [place] [address] Arturo Crawford MD Oropharyngeal dysphagia (Primary Dx); Cricopharyngeal hypertrophy 05/15/2025 Travel 03/17/2025 Telephone [facility] - ENT [address] [place] [address] Arturo Crawford MD Question (Billing) 02/16/2025 9:15 AM CDT Office Visit [facility] - Otolaryngology [address] [place] [address] Arturo Crawford MD Cricopharyngeal hypertrophy (Primary Dx); Oropharyngeal dysphagia; Gastroesophageal reflux disease, unspecified whether esophagitis present 02/16/2025 Travel from Last 3 Months Social History Tobacco Use Types Packs/Day Years Used Date Smoking Tobacco: Former Cigarettes Passive Smoke Exposure: Past Smokeless Tobacco: Former Tobacco Cessation:Counseling Given: Not Answered Alcohol Use Standard Drinks/Week Comments Yes 0 (1 standard drink = 0.6 oz pur e alcohol) socailly Sex and Gender Information Value Date Recorded Sex Assigned at Not on file Legal Sex Male 6:33 AM CDT Gender Identity Not on file Sexual Orientation Not on file Last Filed Vital Signs Vital Sign Reading Time Taken Comments Blood Pressure 143/96 05/15/2025 8:41 AM FURNACE CHECKER Pulse 76 05/15/2025 8:41 AM FURNACE CHECKER Temperature 35.9 C (96.7 F) 01/24/2025 12:47 PM CDT Respiratory Rate 16 01/24/2025 1:27 PM CDT Oxygen Saturation 98% 05/15/2025 8:41 AM FURNACE CHECKER Inhaled Oxygen Concentration - - Weight 79.4 kg (175 lb) 05/15/2025 8:41 AM FURNACE CHECKER Height 165.1 cm (5' 5) 05/15/2025 8:41 AM FURNACE CHECKER Body Mass Index 29.12 05/15/2025 8:41 AM FURNACE CHECKER Plan of Treatment Health Maintenance Due Date Last Done Comments COLOGUARD (AGES 45-75) - COL ON CA SCREENING 1960 COLON MONITORING 1962 COLONOSCOPY - COLON CA SCREENING 1962 CT COLONOGRAPHY - COLON CA SCREENING 1960 Colorectal Cancer Screening 1962 FIT - COLON CA SCREENING 1962 FLEX SIG - COLON CA SCREENING 1962 LIPID TESTING 1962 HIV SCREENING 1977 HEPATITIS C SCREENING 04/20/1980 DTAP/TDAP/TD VACCINES (1 - Tdap) 1981 PNEUMOCOCCAL VACCINE 50+ (1 of 1 - PCV) 2012 ZOSTER VACCINE (1 of 2) 2012 DEPRESSION SCREENING 06/29/2024 COVID-19 VACCINE (1 - 2024-2 6 season) 2025 INFLUENZA VACCINE (#1) 2025 SCREENING FOR DIABETES 01/25/2028 01/24/2025 Respiratory Syncytial Virus (RSV) Vaccine Pt: or over 60 yrs (1 - 1-dose 75+ series) 2037 HEPATITIS B VACCINE Aged Out No longe r eligible based on patient's age to complete this topic HIB VACCINE Aged Out No longer eligi ble based on patient's age to complete this topic HPV VACCINE Aged Out No longer eligi ble based on patient's age to complete this topic MENINGOCOCCAL (Group B) VACC INE SHARED DECISION-MAKING Aged Out No longer eligibl e based on patient's age to complete this topic MENINGOCOCCAL GROUPS A/C/Y/W VACCINE Aged Out No longer eligible b ased on patient's age to complete this topic Procedures Procedure Name Priority Date/Time Associated Diagnosis Comments BASIC METABOLIC PANEL (CALCIUM TOTAL) STAT 01/24/2025 8:48 AM CDT Preop testing from Last 3 Months or Most Recently Relevant to Health Maintenance Results * (ABNORMAL) BASIC METABOLIC PANEL (CALCIUM TOTAL) (01/24/2025 8:48 AM CDT) Glucose 102(H) 70 - 99 mg/dL 01/24/2025 9:18 AM CDT [facility] Sodium 142 136 - 145 mmol/L 01/24/2025 9:18 AM CDT [facility] Potassium 4.6 3.5 - 5.1 mmol/L 01/24/2025 9:18 AM CDT [facility] Chloride 109(H) 98 - 107 mmol/L 01/24/2025 9:18 AM CDT [facility] CO2 25 22 - 29 mmol/L 01/24/2025 9:18 AM CDT [facility] Calcium 9.7 8.4 - 10.4 mg/dL 01/24/2025 9:18 AM CDT [facility] Anion Gap 8 6 - 16 mmol/L 01/24/2025 9:18 AM CDT [facility] BUN 13 7 - 26 mg/dL 01/24/2025 9:18 AM CDT [facility] Creatinine 0.96 0.72 - 1.25 mg/dL 01/24/2025 9:18 AM T [facility] eGFR by CKD-EPI 89(L) >=90 mL/min/1.7 3 m2 01/24/2025 9:18 AM T [facility] Comment:Estimated Glomerular Filtration Rate (eGFR) calculated using the CKD-EPI Creatinine Equation (2020), per the National Kidney Foundation and [place] Society of Nephrology recommendations. Blood BLOOD SPECIMEN / Unknown Venipuncture / Unknown 01/24/2025 8:48 AM CDT 01/24/2025 9:01 AM CDT us Montserrat Goyal MD LAB - CHEMISTRY ORDERABLE S Final Result [facility] [address] [place] [address] from Last 3 Months or Most Recently Relevant to Health Maintenance Insurance SELF PAY NO INSURANCE Member Subscriber Plan / Payer (Ef fective for All Dates) Name:Kamini Dewitt Member ID:Not on file Relation to Subscriber:Not on file Name:KAMINI DEWITT Subscriber ID:Not on file (Home) Address: [address] [place] [phone] Payer ID:Not on file Group ID:Not on file Type:Self Pay Address: [facility] Care Teams Nnp Relationship Specialty Start Date End Date Franki Hall MD [address] [place] [address] PCP - General Internal Medicine 11/17/21
--- OUTSIDE RECORDS SUMMARY | 2025-05-18 17:19 | XMS_ITS | Clinical Summary ---
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
[2025-05-18 17:40] LABS: Iron 84 ug/dL (49-181)
[2025-05-18 17:50] LABS: Percent Iron Saturation 28 % (20-50)
[2025-05-18 18:19] LABS: Hepatitis B Surface Antigen Negative (Negative)
[2025-05-18 18:22] LABS: Ferritin 36.30 ng/mL (11.1-264)
[2025-05-18 18:37] LABS: Hepatitis B Surface Anti Res Negative
[2025-05-19 06:08] LABS: Hep B Core Ab, Total Negative (Negative)
== END 2025-05-18 14:07 | disposition home or self-care (01) ==
LOC: ANHLAB 14:08
PROVIDERS: PCP Internal Medicine; Visit Provider Nurse Practitioner
DX: R19.8 Other specified symptoms and signs involving the digestive system and abdomen (principal); K51.20 Ulcerative (chronic) proctitis without complications; K52.9 Noninfective gastroenteritis and colitis, unspecified; R35.0 Frequency of micturition; K91.850 Pouchitis; Z90.49 Acquired absence of other specified parts of digestive tract
CPT/HCPCS: 36415; 80053; 81003; 82306; 82607; 82728; 83540; 83550; 85025; 85652; 86140; 86480; 86704; 86706; 87340